=== PATIENT | female | born 1950 | race Caucasian/White ===

== ENCOUNTER 2018-04-25 06:19 | Emergency (ER) | payer BC, OTHER ==
--- NOTE | 2018-04-25 06:24 | PDOC ---
History of Present Illness - General Chief Complaint: Pain, Acute Stated Complaint: KIDNEY STONE Time Seen by Provider: 04/25/18 06:23 History Source: Patient Exam Limitations: No Limitations - History of Present Illness Initial Comments: 04/25/18 06:48 This is a 68-year-old female brought in by her for evaluation of right flank pain radiating to her right lower quadrant. Patient said she had acute onset of the pain approximately 1 hour ago and it was associated with nausea and vomiting times one. Patient denies history of similar pain in the past. Patient is otherwise healthy and takes no medications. PAST MEDICAL HISTORY: no significant history PAST SURGICAL HISTORY: no significant history FAMILY HISTORY: no pertinant history SOCIAL HISTORY: Pt lives with family and is employed. MEDICATIONS: reviewed ALLERGIES: As per nursing notes Review of Systems General: No fevers or chills, no weakness, no weight loss HEENT: No change in vision. No sore throat,. No ear pain CardioVascular: No chest pain or shortness of breath Respiratory:No cough, or wheezing. Gastrointestinal: + nausea, + vomitting, no diarrhea or constipation, No rectal bleeding Genitourinary: No dysuria, hematuria, or frequency Musculoskeletal: Right wrist and hand pain post fall Neurologic: No headache, vertigo, dizziness or loss of consciousness Psychiatric: nor depression Skin: No rashes or easy bruising Endocrine: no increased thirst or abnormal weight change Allergic: no skin or latex allergy All other systems reviewed and normal Exam: General: Well-nourished well-developed individual, no acute distress HEENT: Throat: Normal, tonsils normal, no erythema or exudate Neck: Supple, no meningeal signs, no lymphadenopathy Eyes::Pupils equal reactive and round, extraocular motion intact Chest: Nontender to palpation Cardiac: S1-S2 normal, regular rate and rhythm, no murmurs rubs or gallops Respiratory: Lungs clear to auscultation bilateral Abdomen: Soft, nondistended, normal bowel sounds, mild tenderness on palpation to right lower quadrant., no guarding or rebound Back: There is no\CVA or flank tenderness on palpation. Extremities: Warm, dry, no cyanosis, clubbing, or edema Skin: No rashes Neuro: Alert and oriented x3, CN II - XII intact, nonfocal exam with normal strength, normal sensation, normal reflexes, normal gait, Psych: Normal mood and affect Assessment and plan: This is a 68-year-old female with no prior medical history who comes in complaining of right flank pain radiating to her right lower quadrant with some vomiting. Patient is being hydrated with IV fluids, was given Toradol with improvement of her pain. Patient's workup is still pending. Transfer of care to Dr. Gerber at 7 AM this morning. Case discussed in detail with oncoming Emergency Physician including history, physical exam and ancillary studies. Oncoming Emergency Physician has assumed care for the patient and will complete the evaluation and treatment. Patient is aware of the plan. Pt is clinically unchanged and stable. Past History - Past Medical History Allergies/Adverse Reactions: Allergies Allergy/AdvReac Type Severity Reaction Status Date / Time Penicillins Allergy Verified 04/25/18 06:21 Home Medications: Ambulatory Orders Ibuprofen [Motrin -] 600 mg PO QID PRN #20 tablet 04/25/18 Ondansetron [Zofran Odt -] 4 - 8 mg SL TID PRN #10 od.tablet 04/25/18 ED Treatment Course - LABORATORY CBC & Chemistry Diagram: 04/25/18 06:35 04/25/18 06:35 *DC/Admit/Observation/Transfer Diagnosis at time of Disposition: Renal colic on right side - Discharge Dispostion Disposition: HOME Condition at time of disposition: Improved - Prescriptions Prescriptions: Ibuprofen [Motrin -] 600 mg PO QID PRN #20 tablet PRN Reason: Pain Ondansetron [Zofran Odt -] 4 - 8 mg SL TID PRN #10 od.tablet PRN Reason: Nausea And/Or Vomiting - Referrals Referrals: Luis Fernando Wilson MD., MD [Staff Physician] - 1 week - Patient Instructions Printed Discharge Instructions: DI for Kidney Stones Additional Instructions: Drink lots of fluids, stay hydrated. If symptoms recur, use medication prescribed for nausea and pain. If this is not effective, return to the emergency room Strain all urine and collect any debris for analysis See urologist for follow-up 1-2 weeks - Post Discharge Activity
[2018-04-25] MEDS ORDERED: KETOROLAC TROMETHAMINE 30 MG/1 ML VIAL IVPUSH ONE (06:25)
[2018-04-25] MEDS ORDERED: SODIUM CHLORIDE 1,000 ML IV ONE (06:25)
[2018-04-25] MEDS ORDERED: KETOROLAC TROMETHAMINE 30 MG/1 ML VIAL ONE (06:27)
[2018-04-25 06:38] VITALS: TEMP 97; BMI 19.9
[2018-04-25] MEDS ORDERED: ONDANSETRON 4 MG/2 ML VIAL ONE (07:19)
[2018-04-25] MEDS ORDERED: ONDANSETRON 4 MG/2 ML VIAL IVPB ONE (07:24)
[2018-04-25 07:56] LABS: URINE APPEARANCE SLCLOUDY; URINE BILIRUBIN NEGATIVE (<2.0 mg/dL); URINE COLOR YELLOW; URINE GLUCOSE (UA) NEGATIVE (NEGATIVE); URINE KETONE NEGATIVE (NEGATIVE); URINE LEUK ESTERASE NEGATIVE (NEGATIVE); URINE NITRITE NEGATIVE (NEGATIVE); URINE PROTEIN NEGATIVE (NEGATIVE); URINE UROBILINOGEN NEGATIVE mg/dL (0.2-1.0)
[2018-04-25 08:13] LABS: BASO % 0.7 % (0-2.0); HEMATOCRIT 38.9 % (32.4-45.2); HEMOGLOBIN 13.1 GM/dL (10.7-15.3); LYMPH % 49.3 % (8-40); MCH 30.2 pg (25.7-33.7); MCHC 33.6 g/dl (32.0-36.0); MEAN CELL VOLUME 89.8 fl (80-96); MONO % 6.4 % (3.8-10.2); NEUT % 41.6 % (42.8-82.8); PLATELET COUNT 223 K/MM3 (134-434); RBC 4.33 M/mm3 (3.60-5.2); RDW 13.8 % (11.6-15.6); WHITE BLOOD COUNT 6.9 K/mm3 (4.0-10.0)
[2018-04-25 08:22] LABS: ALBUMIN 3.5 g/dl (3.4-5.0); ANION GAP 6 MMOL/L (8-16); BILIRUBIN,TOTAL 0.4 mg/dL (0.2-1.0); BLOOD UREA NITROGEN 22 mg/dL (7-18); CALCIUM 8.7 mg/dL (8.5-10.1); CHLORIDE 105 mmol/L (98-107); CO2 31 mmol/L (21-32); CREATININE 0.8 mg/dL (0.55-1.02); GLUCOSE,RANDOM 152 mg/dL (74-106); POTASSIUM 3.9 mmol/L (3.5-5.1); SGOT/AST 24 U/L (15-37); SGPT/ALT 27 U/L (12-78); SODIUM 142 mmol/L (136-145)
[2018-04-25 08:23] LABS: ALK PHOS 69 U/L (45-117); TOT PROT 6.5 g/dl (6.4-8.2)
--- NOTE | 2018-04-25 09:48 | PDOC ---
*Physical Exam - Vital Signs Last Vital Signs Temp Pulse Resp BP Pulse Ox 97 F L 63 20 133/78 97 04/25/18 06:31 04/25/18 06:31 04/25/18 06:31 04/25/18 06:31 04/25/18 06:31 - Physical Exam Comments: 04/25/18 09:47 Patient is now pain-free. No further nausea or vomiting. CT was reviewed with Dr. Ragland. 2 mm stone visualized at the UV junction or in the bladder, with hydroureter and mild hydronephrosis. Patient referred to urologist. Discharged with analgesics and antiemetics if symptoms recur. Return to the emergency room if there are further symptoms. Fully ambulatory and in no distress upon discharge, pain or otherwise, to follow -up as directed. ED Treatment Course - LABORATORY CBC & Chemistry Diagram: 04/25/18 06:35 04/25/18 06:35 - ADDITIONAL ORDERS Additional order review: Laboratory Results 04/25/18 04/25/18 06:35 06:35 Sodium 142 Potassium 3.9 Chloride 105 Carbon Dioxide 31 Anion Gap 6 L BUN 22 H Creatinine 0.8 Creat Clearance w eGFR > 60 Random Glucose 152 H Calcium 8.7 Total Bilirubin 0.4 AST 24 ALT 27 Alkaline Phosphatase 69 Total Protein 6.5 Albumin 3.5 Urine Color Yellow Urine Appearance Slcloudy Urine pH 5.0 Ur Specific Loris 1.018 Urine Protein Negative Urine Glucose (UA) Negative Urine Ketones Negative Urine Blood 1+ H Urine Nitrite Negative Urine Bilirubin Negative Urine Urobilinogen Negative Ur Leukocyte Esterase Negative 04/25/18 06:35 RBC 4.33 MCV 89.8 MCHC 33.6 RDW 13.8 MPV 10.0 Neutrophils % 41.6 L Lymphocytes % 49.3 H Monocytes % 6.4 Eosinophils % 2.0 Basophils % 0.7 - Medications Given in the ED: ED Medications Discontinued Medications Generic Name Dose Route Start Last Admin Trade Name Freq PRN Reason Stop Dose Admin Sodium Chloride 1,000 mls @ 1,000 mls/hr 04/25/18 06:25 04/25/18 06:39 Normal Saline - IV 04/25/18 07:24 1,000 mls/hr .Q1H ONE Administration Ketorolac Tromethamine 30 mg 04/25/18 06:25 04/25/18 06:39 Toradol Injection - IVPUSH 04/25/18 06:26 30 mg ONCE ONE Administration Ondansetron HCl 4 mg 04/25/18 07:24 04/25/18 07:31 Zofran Injection IVPB 04/25/18 07:25 4 mg ONCE ONE Administration *DC/Admit/Observation/Transfer Diagnosis at time of Disposition: Renal colic on right side - Discharge Dispostion Disposition: HOME Condition at time of disposition: Improved Decision to Admit order: No - Referrals Referrals: Luis Fernando Wilson MD., MD [Staff Physician] - 1 week - Patient Instructions Printed Discharge Instructions: DI for Kidney Stones Additional Instructions: Drink lots of fluids, stay hydrated. If symptoms recur, use medication prescribed for nausea and pain. If this is not effective, return to the emergency room Strain all urine and collect any debris for analysis See urologist for follow-up 1-2 weeks - Post Discharge Activity
[2018-04-25 10:01] LABS: CALCIUM OXALATE CRYSTALS MANY /hpf (NONE SEEN); EPI CELLS RARE /HPF (FEW); URINE HYALINE CAST 2 /lpf; URINE MUCUS RARE
[2018-04-25 10:13] VITALS: BP 100/60; PULSE 78
== END 2018-04-25 10:13 | disposition home or self-care (01) ==
LOC: FER 06:19
PROC: 3E0333Z Introduction of Anti-inflammatory into Peripheral Vein, Percutaneous Approach (ICD-10-PCS; principal; 2018-04-25)
PROC: 3E033GC Introduction of Other Therapeutic Substance into Peripheral Vein, Percutaneous Approach (ICD-10-PCS; 2018-04-25)
PROC: 3E0337Z Introduction of Electrolytic and Water Balance Substance into Peripheral Vein, Percutaneous Approach (ICD-10-PCS; 2018-04-25)
DX: N23 Unspecified renal colic (principal)
CPT/HCPCS: 36415; 74176-TC; 80053; 81003; 81015; 85025; 99281-25; J7030